=== PATIENT | female | born 1945 | race Caucasian/White ===

== ENCOUNTER 2022-06-13 06:34 | Observation (INO) ==
[2022-06-13] MEDS ORDERED: Vancomycin 1,000 MG VIAL ONE ×3 (06:49→09:31)
[2022-06-13] MEDS ORDERED: CeFAZolin Syr 2,000MG/20 ML 2,000 MG/20 ML SYRINGE IVPB ONE (06:57)
[2022-06-13] MEDS ORDERED: Ringers Solution, Lactated 1,000 ML IVC SCH ×2 (07:00→11:57)
[2022-06-13] MEDS ORDERED: Famotidine 20 MG TABLET PO ONE (07:00)
[2022-06-13] MEDS ORDERED: *HR* FentaNYL (PF) 100 MCG/2 ML VIAL ONE ×2 (07:02→08:48)
[2022-06-13] MEDS ORDERED: *HR* Propofol 200 MG/20 ML VIAL IVP ONE (07:03)
[2022-06-13] MEDS ORDERED: *HR* Succinylcholine 200 MG/10 ML VIAL IVP ONE (07:05)
[2022-06-13] MEDS ORDERED: Lidocaine -MPF 2% 5 ML VIAL ONE (07:05)
[2022-06-13] MEDS ORDERED: *HR* Rocuronium Bromide 50 MG/5 ML VIAL ONE (07:05)
[2022-06-13] MEDS ORDERED: *HR* HYDROmorphone PF 0.5 MG/0.5 ML SYRINGE IVP PRN (07:06)
[2022-06-13] MEDS ORDERED: Ondansetron 4 MG/2 ML VIAL IVP PRN ×2 (07:06→11:57)
[2022-06-13] MEDS ORDERED: Lidocaine -MPF 4% 5 ML AMPUL ONE (07:08)
[2022-06-13] MEDS ORDERED: Tranexamic Acid 1,000 MG/10 ML VIAL ONE ×2 (07:14→08:40)
[2022-06-13] MEDS ORDERED: Ropivacaine/PF 0.5% 30 ML VIAL ONE (07:16)
[2022-06-13] MEDS ORDERED: *HR* Midazolam HCl 2 MG/2 ML VIAL ONE (08:05)
[2022-06-13] MEDS ORDERED: Povidone-Iodine 45 ML, Sodium Chloride IRRigation 1,000 ML IR ONE (08:15)
[2022-06-13] MEDS ORDERED: TOTAL JOINT MIXTURE (100ML) INTRAART ONE (08:15)
[2022-06-13] MEDS: *HR* FentaNYL (PF) 100 MCG/2 ML VIAL IVP PRN ×3 (10:44→10:59)
[2022-06-13] MEDS ORDERED: *HR* OxyCODONE Immed Rel 5 MG TABLET PO PRN (10:44)
[2022-06-13] MEDS ORDERED: MOM Conc 10 ML UD.LIQ PO PRN (11:57)
[2022-06-13] MEDS ORDERED: Sennosides 8.6 MG TABLET PO PRN (11:57)
[2022-06-13] MEDS ORDERED: Naloxone 0.4 MG/ML INJ IVP PRN (11:57)
[2022-06-13] MEDS ORDERED: *HR* Promethazine 25 MG/ML VIAL IM PRN (11:57)
[2022-06-13] MEDS ORDERED: Ipratropium/Albuterol Neb 3 ML IH PRN (11:57)
[2022-06-13] MEDS: Ketorolac 30 MG/ML VIAL IVP SCH ×2 (15:10→19:27)
[2022-06-13] MEDS: *HR* OxyCODONE Immed Rel 5 MG TABLET PO PRN (15:14)
[2022-06-13] MEDS: Ascorbic Acid 500 MG TABLET PO SCH (19:27)
[2022-06-13] MEDS: CeFAZolin 2 GM/120 ML BAG IVPB SCH (19:27)
[2022-06-13] MEDS: Mirtazapine 15 MG TABLET PO SCH (21:50)
[2022-06-14] MEDS: CeFAZolin 2 GM/120 ML BAG IVPB SCH ×3 (01:41→19:20)
[2022-06-14] MEDS: Ketorolac 30 MG/ML VIAL IVP SCH ×4 (01:41→19:19)
[2022-06-14] MEDS: Furosemide 40 MG TABLET PO SCH (04:42)
[2022-06-14 06:30] LABS: Hemoglobin 9.9 g/dL (11.5-15.4); Mean Corpuscular Hemoglobin 31.6 pg (28.0-33.3); Red Blood Count 3.13 M/mcL (3.82-4.97)
[2022-06-14 06:32] LABS: Basophils % 0.2 %; Hematocrit 30.3 % (35.3-44.9); Immature Granulocytes % 0.4 % (0-4); Immature Platelets 5.9 % (1.1-6.1); Lymphocytes # 0.5 K/mcL (0.6-4.6); Lymphocytes % 10.4 %; Mean Corpuscular HGB Conc 32.7 g/dL (31.6-35.5); Mean Corpuscular Volume 96.8 fL (83.0-100.0); Mean Platelet Volume 10.5 fL (9.4-12.4); Monocytes # 0.4 K/mcL (0.0-1.3); Monocytes % 7.9 %; Neutrophils # 3.9 K/mcL (1.6-8.9); Red Cell Distribution Width 14.2 % (11.5-14.5); Segmented Neutrophils % 81.1 %; White Blood Count 4.8 K/mcL (4.3-11.1)
[2022-06-14 06:34] LABS: Platelet Count 85 K/mcL (140-400)
[2022-06-14 07:15] LABS: Calcium 8.7 mg/dL (8.6-10.3); Potassium 4.6 mEq/L (3.5-5.1)
[2022-06-14] MEDS: Folic Acid 1 MG TABLET PO SCH (08:31)
[2022-06-14] MEDS: Multivit/Ca/Min/Fe/FA 1 TAB TABLET PO SCH (08:32)
[2022-06-14] MEDS: Ascorbic Acid 500 MG TABLET PO SCH ×2 (08:32→16:49)
[2022-06-14] MEDS ORDERED: *HR* Amiodarone 200 MG TABLET PO SCH (09:00)
[2022-06-14] MEDS: Aspirin Enteric Coated 81 MG Tablet PO SCH (14:24)
[2022-06-14] MEDS: *HR* OxyCODONE Immed Rel 5 MG TABLET PO PRN ×2 (14:26→22:42)
[2022-06-14] MEDS: Mirtazapine 15 MG TABLET PO SCH (20:38)
[2022-06-15] MEDS: CeFAZolin 2 GM/120 ML BAG IVPB SCH ×3 (00:35→17:09)
[2022-06-15] MEDS: Ketorolac 30 MG/ML VIAL IVP SCH ×4 (00:53→17:09)
[2022-06-15 02:06] LABS: Calcium 9.2 mg/dL (8.6-10.3); Potassium 4.1 mEq/L (3.5-5.1)
[2022-06-15 02:08] LABS: Eosinophils # 0.2 K/mcL (0.0-0.6); Hematocrit 33.2 % (35.3-44.9); Hemoglobin 10.7 g/dL (11.5-15.4); Mean Corpuscular HGB Conc 32.2 g/dL (31.6-35.5); Mean Corpuscular Hemoglobin 31.1 pg (28.0-33.3); Mean Corpuscular Volume 96.5 fL (83.0-100.0); Mean Platelet Volume 10.8 fL (9.4-12.4); Platelet Count 102 K/mcL (140-400); Red Blood Count 3.44 M/mcL (3.82-4.97); Red Cell Distribution Width 14.4 % (11.5-14.5); White Blood Count 4.6 K/mcL (4.3-11.1)
[2022-06-15 02:49] LABS: Lymphocytes # 0.9 K/mcL (0.6-4.6); Monocytes # 0.3 K/mcL (0.0-1.3); Neutrophils # 3.2 K/mcL (1.6-8.9); Platelet Estimate Decreased (Normal)
[2022-06-15 02:50] LABS: Anisocytosis 1+ (Not Present)
[2022-06-15] MEDS: Aspirin Enteric Coated 81 MG Tablet PO SCH (10:02)
[2022-06-15] MEDS: Ascorbic Acid 500 MG TABLET PO SCH ×2 (10:02→17:08)
[2022-06-15] MEDS: Folic Acid 1 MG TABLET PO SCH (10:02)
[2022-06-15] MEDS: Furosemide 40 MG TABLET PO SCH (10:02)
[2022-06-15] MEDS: Multivit/Ca/Min/Fe/FA 1 TAB TABLET PO SCH (10:02)
[2022-06-15 18:03] LABS: Influenza A PCR Negative (Negative); Influenza B PCR Negative (Negative); Resp. Syncytial Virus PCR Negative (Negative)
[2022-06-15 18:42] VITALS: BP 127/40; PULSE 71; TEMP 97.8; O2SAT 94
[2022-06-15 18:51] LABS: SARS-CoV-2 by PCR (In House) Negative (Negative)
[2022-06-15] MEDS: Mirtazapine 15 MG TABLET PO SCH (20:07)
== END 2022-06-15 19:00 ==
LOC: SDCAOSI 06:34 → 4WAOSI 11:42 → INTOOBSV 13:35
PROVIDERS: ADMIT Orthopaedic Surgery; ATTEND Orthopaedic Surgery